=== PATIENT | male | born 1985 | race Caucasian/White ===

== ENCOUNTER 2023-09-27 09:22 | Emergency (ER) | payer OTHER, SELFPAY ==
[2023-09-27 09:34] VITALS: BP 149/84
--- NOTE | 2023-09-27 10:49 | ED.GENMED ---
History of Present Illness
General
Chief Complaint: Skin Problem
Source: patient
Exam Limitations: none
Time Seen by Provider: 09/27/23 09:41
Nursing documentation reviewed up to this point in time: agreed with
Travel History
Have you had any contact with someone who has COVID-19?: No
Do you have any symptoms of coronavirus? Fever > 100 degrees, chills, cough, shortness of breath, sore throat, loss of taste or smell, muscle aches, or headache?: No
History of Present Illness
History of Present Illness:
Patient is a 38-year-old [id number] male who presents to the emergency department with redness and swelling of his right hands with increased pain. Patient has noticed this increasing over the past 4 days. Prior to that the patient had
cut the dorsum of his proximal third finger at work. No broken pieces but dirty surface. Patient initially did not do anything about it. Patient's tetanus is up-to-date. Patient states it became infected and he went to urgent care and was placed
on antibiotics. Patient did 7 days of Keflex. Seem to clear up and then 4 days ago began to swell again. Patient denies numbness or paresthesias. Patient states it is somewhat painful.
Past History
Past History
ED Past Medical History: Asthma
ED Past Surgical History: None
Social History
Tobacco: Smoker
Alcohol: Occasional
Personal: Single
Living: with family
Review of Systems
Review of Systems
All Other Systems: Not applicable
Phy Exam
Physical Exam
Physical Exam:
Physical Exam
General: No apparent distress, alert and appropriate, well nourished, well hydrated
HENT: Normocephalic, supple with no lymphadenopathy
Eyes: Clear sclera, conjuctiva without injection
Neuro: Alert and oriented x 3, CN II - XII intact, no motor focality, no cerebellar dysfunction
Skin: no rash. Healed wound on the dorsum of the proximal phalanx of the third digit. Neurovascular and tendons intact. Mild tenderness and erythema of the dorsum of the distal hand and proximal fingers.
Psychiatric: well kept. interactive and cooperative
Extremities: No cyanosis
Course
Orders/Labs/Results
Orders:
Orders
09/27/23 09:47
CR Hand - Right Min 3 Views Urgent
Comment:
Reason For Exam: swelling dorsum after lac of prox 3rd prox phalanx
Vital Signs
Initial and Last Documented VS:
Initial Vital Signs
Temp Pulse Resp BP Pulse Ox
98.2 F 64 16 149/84 98
09/27/23 09:34 09/27/23 09:34 09/27/23 09:34 09/27/23 09:34 09/27/23 09:34
Last Documented Vital Signs
Temp Pulse Resp BP Pulse Ox
98.2 F 64 16 149/84 98
09/27/23 09:34 09/27/23 09:34 09/27/23 09:34 09/27/23 09:34 09/27/23 09:34
*Radiology
Radiology exam reviewed: radiology read reviewed (Unremarkable)
*Pulse Oximetry
Patient hypoxic: no
*EKG
Interpreted by ED Provider?: NA
*Cable Systems Installer Interpretation
Rate: Cable Systems Installer- N/A
*Critical Care Note
Total Time (30-74mins, 75-104mins- exclusive of procedures): Not Applicable
Update Note
Update Note:
Will treat the patient with another round of antibiotics. Decided against using steroids because of the various tissue levels of the hands and fingers. Patient will be referred to hands.
ED Attending Note
-
Portions of this chart may have been created with voice recognition software.� Occasional wrong word or��sound alike� substitutions may have occurred due to the inherent limitations of voice recognition software.
Discharge Plan
Departure
Patient Disposition: Home (Routine Discharge)
Date of Disposition: 09/27/23
Time of Disposition: 10:54
Patient with high blood pressure during this ER visit?: Yes
Condition: Good
Covid-19: Not Applicable
Discharge Problem:
Cellulitis of right hand
Instructions: Cellulitis (Skin Infection), Adult (DC), BLOOD PRESSURE
Prescriptions:
New
doxycycline hyclate 100 mg tablet
100 mg PO BID Qty: 20 0RF
No Action
lorazepam 0.5 MG tablet
0.5 mg PO PRN PRN (Reason: anxiety)
ondansetron 4 MG tablet,disintegrating
4 mg PO TIDPRN PRN (Reason: nausea/vomiting) Qty: 10 0RF
hydrocodone-acetaminophen 1 TABLET tablet
1 tab PO Q4HPRN PRN (Reason: severe pain) Qty: 10 0RF
cephalexin 500 MG capsule
500 mg PO BID Qty: 13 0RF
Referrals:
Brittany Church CRNP [Family Provider] - Follow up in 5-7 days
Jame Goodman MD [Active] - Follow up in 2-3 days
Interventions
Interventions:
*ED COVID-19 Vaccine History Last Done: 09/27/23 09:34
== END 2023-09-27 11:25 | disposition home or self-care (01) ==
LOC: EMR 09:22
PROVIDERS: EMERGENCY PHYSICIAN Emergency Medicine; FAMILY PHYSICIAN Nurse Practitioner Family
DX: L03.113 Cellulitis of right upper limb (principal); J45.909 Unspecified asthma, uncomplicated; F17.200 Nicotine dependence, unspecified, uncomplicated
CPT/HCPCS: 99283; 73130